=== PATIENT | female | born 1995 | race Caucasian/White ===

== ENCOUNTER 2018-05-11 15:37 | Emergency (ER) | payer OTHER ==
[~2018-05-11] VITALS: Ht 154.9 cm; Wt 73.9 kg
[2018-05-11 16:21] VITALS: BP 125/76; Ht 154.9 cm; Wt 73.9 kg
== END 2018-05-11 17:15 | disposition home or self-care (01) ==
LOC: ED 15:37
DX: M72.2 Plantar fascial fibromatosis (principal)

== ENCOUNTER 2018-09-05 01:37 | Emergency (ER) | payer OTHER ==
[~2018-09-05] VITALS: Ht 154.9 cm; Wt 71.4 kg
[2018-09-05 01:44] VITALS: Ht 154.9 cm; Wt 71.4 kg
[2018-09-05 03:45] LABS: BASOPHIL % 0.4 % (0-2); PLATELET COUNT 144 x10^3mcL (130-400); RED CELL DISTRIBUTION WIDTH 13.5 % (11.5-14.5)
[2018-09-05 03:59] LABS: CARBON DIOXIDE 24.2 mmol/L (21-32); CHLORIDE SERUM 106 mmol/L (98-107); CREATININE SERUM 0.9 mg/dL (0.6-1.0); GFR1 > 60 mL/min; GLUCOSE SERUM 99 mg/dL (74-106); POTASSIUM SERUM 4.5 mmol/L (3.5-5.1); SODIUM SERUM 141 mmol/L (136-145)
[2018-09-05 04:58] VITALS: BP 108/64
== END 2018-09-05 04:58 | disposition home or self-care (01) ==
LOC: ED 01:37
PROVIDERS: Emergency Medicine
DX: T40.7X1A Poisoning by cannabis (derivatives), accidental (unintentional), initial encounter (principal); R11.2 Nausea with vomiting, unspecified; Y92.89 Other specified places as the place of occurrence of the external cause
CPT/HCPCS: J2060; J2405; J7030